=== PATIENT | male | born 1935 | race Caucasian/White ===

== ENCOUNTER 2017-02-25 19:41 | Inpatient (IN) ==
[2017-02-25] MEDS ORDERED: 0.9 % Sodium Chloride 1,000 ML ONE (20:09)
[2017-02-25] MEDS ORDERED: 0.9 % Sodium Chloride 1,000 ML IVC ONE (20:10)
[2017-02-25 20:57] LABS: Hematocrit 20.4 % (37.5-50.1); Immature Granulocytes % 1.5 % (0-4); Lymphocytes # 0.9 K/mcL (0.6-4.6); Lymphocytes % 4.3 %; Mean Corpuscular HGB Conc 27.5 g/dL (31.6-35.5); Mean Corpuscular Hemoglobin 19.6 pg (28.0-33.3); Mean Corpuscular Volume 71.6 fL (83.0-100.0); Mean Platelet Volume 9.2 fL (9.4-12.4); Monocytes # 0.5 K/mcL (0.0-1.3); Monocytes % 2.5 %; Neutrophils # 18.4 K/mcL (1.6-8.9); Platelet Count 164 K/mcL (140-400); Red Blood Count 2.85 M/mcL (4.19-5.50); Red Cell Distribution Width 18.5 % (11.5-14.5); Segmented Neutrophils % 91.7 %
[2017-02-25 21:02] LABS: INR 1.2; Prothrombin Time 13.2 Seconds (9.4-12.1)
[2017-02-25 21:04] LABS: Activated Partial Thrombo Time 27.4 Seconds (26.0-36.0)
[2017-02-25 21:11] LABS: Alanine Aminotransferase 6 Units/L (0-55); Albumin/Globulin Ratio 0.6 (1.1-2.2); Alkaline Phosphatase 90 Units/L (38-126); Amylase 63 Units/L (25-125); Aspartate Amino Transferase 15 Units/L (5-34); BUN/Creatinine Ratio 22 (6-26); Bilirubin,Direct 0.3 mg/dL (0.0-0.5); Bilirubin,Indirect 0.2 mg/dL (0.0-1.2); Bilirubin,Total 0.5 mg/dL (0.2-1.2); Blood Urea Nitrogen 17 mg/dL (8-26); Calcium 7.7 mg/dL (8.6-10.8); Carbon Dioxide 26 mEq/L (19-29); Chloride 106 mEq/L (98-109); Globulin 3.1 g/dL (2.4-3.5); Glucose 118 mg/dL (70-99); Osmolality,Calculated 281 (280-300); Potassium 3.8 mEq/L (3.5-4.5); Sodium 134 mEq/L (136-145); Total Protein 5.1 g/dL (6.0-8.3); eGFR For African Americans > 60 (> 60); eGFR For Non-African Americans > 60 (> 60)
[2017-02-25 21:12] LABS: Lipase < 10 Units/L (8-78)
[2017-02-25 21:16] LABS: Hemoglobin 5.6 g/dL (12.9-16.9)
[2017-02-25 21:31] LABS: Anisocytosis 1+ (Not Present); Hypochromasia Present (Not Present); Platelet Estimate Normal (Normal)
[2017-02-25 21:32] LABS: Ovalocytes 1+ (Not Present); Tear Drop Cells 1+ (Not Present)
--- NOTE | 2017-02-25 22:54 | Emergency Department Note ---
Disposition Clinical Impression: GI bleeding Qualifiers: GI bleed type/associated pathology: unspecified gastrointestinal hemorrhage type Qualified Code(s): K92.2 - Gastrointestinal hemorrhage, unspecified Anemia Qualifiers: Anemia type: unspecified type Qualified Code(s): D64.9 - Anemia, unspecified Disposition: Admitted As Inpatient Condition: Good General Adult HPI - General Chief complaint: ED Extremity Injury, Upper Stated complaint: L arm/abd pain Time Seen by Provider: 02/25/17 19:51 Source: patient, EMS Limitations: no limitations Nursing Notes Reviewed: Yes Vital Signs Reviewed: Yes - History of Present Illness HPI Narrative: 81-year-old male presents with concerns of left arm pain and abdominal pain. Patient has a history of colon cancer and has been anemic multiple times in the past. Patient does report feeling weak and fatigued. On my initial evaluation he denies arm or abdominal pain but he is very pale to the exam. Patient had initial blood pressure in the systolic 80s which did improve after initial treatment with IV fluids. Pain Scale: 0 - Related Data Home Medications Medication Instructions Recorded Confirmed Acetaminophen [Tylenol 650mg SUPP] 650 mg RC Q6H PRN 02/25/17 02/25/17 Bisacodyl [Dulcolax] 10 mg RC DAILY PRN 02/25/17 02/25/17 Calcium Carbonate [Calcium] 500 mg PO QAM 02/25/17 02/25/17 Cholecalciferol (D-3) [Vitamin D] 2,000 unit PO DAILY 02/25/17 02/25/17 Guaifenesin [Mucinex] 1,200 mg PO BID PRN 02/25/17 02/25/17 HYDROcodone/Acet 5/325 mg [[place] 1 tab PO Q6H PRN 02/25/17 02/25/17 5-325 mg] Hyoscyamine SL [Levsin SL] 0.125 mg SL Q4H PRN 02/25/17 02/25/17 LORazepam [Ativan] 0.5 mg PO Q6H PRN 02/25/17 02/25/17 Levothyroxine [Synthroid] 50 mcg PO QAM 02/25/17 02/25/17 Morphine Oral CONC [Roxanol] 5 mg PO Q3H PRN 02/25/17 02/25/17 Potassium Chloride [K-Tab ER] 10 meq PO DAILY 02/25/17 02/25/17 Prochlorperazine Maleate 10 mg PO Q6H PRN 02/25/17 02/25/17 [Compazine] Ranitidine HCl [Zantac] 150 mg PO BID 02/25/17 02/25/17 Sennosides/Docusate Sodium [Sm 1 each PO BID 02/25/17 02/25/17 Senna-S Tablet] Tamsulosin [Flomax] 0.4 mg PO HS 02/25/17 02/25/17 Previous Rx's Medication Instructions Recorded Megestrol Acetate [Megace] 400 mg PO DAILY #300 mls 05/06/16 Cyanocobalamin (B-12) [Vitamin B12] 1,000 mcg PO DAILY #30 tablet 05/13/16 Folic Acid 1 mg PO DAILY #30 tablet 05/13/16 Docusate Sodium [Colace] 1 tab PO BID #60 capsule 06/02/16 Polyethylene Glycol 3350 [MiraLAX] 17 gm PO DAILY #1 tub 06/02/16 Citalopram Hydrobromide [Celexa] 20 mg PO DAILY #30 tab 06/09/16 HYDROcodone/Acet 7.5/325 mg [[place] 1 tab PO Q6H PRN #90 tablet 09/10/16 7.5-325 mg] Morphine Sulfate 20 mg PO Q2H PRN #30 mls 09/10/16 Terazosin HCl 2 mg PO HS #30 capsule 10/21/16 Allergies Allergy/AdvReac Type Severity Reaction Status Date / Time No Known Allergies Allergy Verified 06/06/15 10:20 All systems ED: reviewed and negative except as stated. Constitutional: Reports: weakness. Denies: fever, chills Cardiovascular: Reports: chest pain Gastrointestinal: Reports: abdominal pain, nausea. Denies: vomiting, diarrhea, hematemesis, melena, hematochezia Past Medical History - Past Medical History Attestation: Yes The following information was validated with the patient. Source: patient Medical history: Reports: cancer, GERD, hypertension Psychiatric history: Reports: depression - Social History Smoking Status: Never smoker Alcohol use: Reports: none Drug use: Reports: none Physical Exam General: Alert and in no acute distress Skin: Warm, dry, intact Head: Normocephalic and atraumatic Neck: Supple, trachea midline and no tenderness Cardiovascular: Tachycardia, normal perfusion Respiratory: CTAB, no wheezing, cough, or respiratory distress Musculoskeletal: Normal strength, no tenderness, swelling or deformity GI: Soft, nontender, nondistended. Bowel sounds present. rectal exam shows liquid brown stool that is guaiac positive Neuro: A&O to person, place, time and situation. No focal deficits noted on exam Psychiatric: cooperative and appropriate mood and affect. - General Limitations: no limitations General appearance: alert, in no apparent distress Course Vital Signs Temperature 97.7 F 02/25/17 19:51 Pulse Rate 97 02/25/17 19:51 Respiratory Rate 18 02/25/17 19:51 Blood Pressure 87/53 02/25/17 19:51 O2 Sat by Pulse Oximetry 98 02/25/17 19:51 Temperature 97.7 F 02/25/17 19:51 Pulse Rate 97 02/25/17 20:41 Respiratory Rate 18 02/25/17 22:30 Blood Pressure 99/64 02/25/17 22:30 O2 Sat by Pulse Oximetry 100 02/25/17 20:41 Oxygen Delivery Oxygen Delivery Nasal Cannula Medical Decision Making - [facility] Narrative Medical decision making narrative: Rectal exam showed brown stool which was definitively guaiac positive. This is likely the source of the patient's anemia. He does not have any pain in his chest or anywhere else in the emergency department. Patient will be admitted to the hospital for blood transfusion and further evaluation of his GI bleeding. - Medical Records Medical records reviewed: Yes I reviewed the patient's medical records. - Lab Data Lab results reviewed: Yes I reviewed the patient's lab results. Result diagrams: 02/25/17 20:34 02/25/17 20:34 Lab Results 02/25/17 02/25/17 02/25/17 Range/Units 20:34 20:34 20:34 WBC 20.1 H (4.3-11.1) K/mcL RBC 2.85 L (4.19-5.50) M/mcL Hgb 5.6 L* (12.9-16.9) g/dL Hct 20.4 L (37.5-50.1) % MCV 71.6 L (83.0-100.0) fL MCH 19.6 L (28.0-33.3) pg MCHC 27.5 L (31.6-35.5) g/dL RDW 18.5 H (11.5-14.5) % Plt Count 164 (140-400) K/mcL MPV 9.2 L (9.4-12.4) fL Immature Gran % 1.5 (0-4) % Seg Neutrophils % 91.7 % Lymphocytes % 4.3 % Monocytes % 2.5 % Eosinophils % 0.0 % Basophils % 0.0 % Neutrophils # 18.4 H (1.6-8.9) K/mcL Lymphocytes # 0.9 (0.6-4.6) K/mcL Monocytes # 0.5 (0.0-1.3) K/mcL Eosinophils # 0.0 (0.0-0.6) K/mcL Basophils # 0.0 (0.0-0.2) K/mcL Platelet Estimate Normal (Normal) Hypochromasia Present A (Not Present) Anisocytosis 1+ A (Not Present) Tear Drop Cells 1+ A (Not Present) Ovalocytes 1+ A (Not Present) PT 13.2 H (9.4-12.1) Seconds INR 1.2 APTT 27.4 (26.0-36.0) Seconds Sodium 134 L (136-145) mEq/L Potassium 3.8 (3.5-4.5) mEq/L Chloride 106 (98-109) mEq/L Carbon Dioxide 26 (19-29) mEq/L BUN 17 (8-26) mg/dL Creatinine 0.76 (0.72-1.25) mg/dL Est GFR ( Amer) > 60 (> 60) Est GFR (Non-Af Amer) > 60 (> 60) BUN/Creatinine Ratio 22 (6-26) Glucose 118 H (70-99) mg/dL Calculated Osmolality 281 (280-300) Calcium 7.7 L (8.6-10.8) mg/dL Total Bilirubin 0.5 (0.2-1.2) mg/dL Direct Bilirubin 0.3 (0.0-0.5) mg/dL Indirect Bilirubin 0.2 (0.0-1.2) mg/dL AST 15 (5-34) Units/L ALT 6 (0-55) Units/L Alkaline Phosphatase 90 (38-126) Units/L Troponin I (0-0.03) ng/mL Serum Total Protein 5.1 L (6.0-8.3) g/dL Albumin 2.0 L (3.5-5.0) g/dL Globulin 3.1 (2.4-3.5) g/dL Albumin/Globulin Ratio 0.6 L (1.1-2.2) Amylase 63 (25-125) Units/L Lipase < 10 (8-78) Units/L Stool Occult Blood (Negative) Blood Type Antibody Screen Crossmatch 02/25/17 02/25/17 02/25/17 Range/Units 21:44 21:48 21:48 WBC (4.3-11.1) K/mcL RBC (4.19-5.50) M/mcL Hgb (12.9-16.9) g/dL Hct (37.5-50.1) % MCV (83.0-100.0) fL MCH (28.0-33.3) pg MCHC (31.6-35.5) g/dL RDW (11.5-14.5) % Plt Count (140-400) K/mcL MPV (9.4-12.4) fL Immature Gran % (0-4) % Seg Neutrophils % % Lymphocytes % % Monocytes % % Eosinophils % % Basophils % % Neutrophils # (1.6-8.9) K/mcL Lymphocytes # (0.6-4.6) K/mcL Monocytes # (0.0-1.3) K/mcL Eosinophils # (0.0-0.6) K/mcL Basophils # (0.0-0.2) K/mcL Platelet Estimate (Normal) Hypochromasia (Not Present) Anisocytosis (Not Present) Tear Drop Cells (Not Present) Ovalocytes (Not Present) PT (9.4-12.1) Seconds INR APTT (26.0-36.0) Seconds Sodium (136-145) mEq/L Potassium (3.5-4.5) mEq/L Chloride (98-109) mEq/L Carbon Dioxide (19-29) mEq/L BUN (8-26) mg/dL Creatinine (0.72-1.25) mg/dL Est GFR ( Amer) (> 60) Est GFR (Non-Af Amer) (> 60) BUN/Creatinine Ratio (6-26) Glucose (70-99) mg/dL Calculated Osmolality (280-300) Calcium (8.6-10.8) mg/dL Total Bilirubin (0.2-1.2) mg/dL Direct Bilirubin (0.0-0.5) mg/dL Indirect Bilirubin (0.0-1.2) mg/dL AST (5-34) Units/L ALT (0-55) Units/L Alkaline Phosphatase (38-126) Units/L Troponin I 0.03 (0-0.03) ng/mL Serum Total Protein (6.0-8.3) g/dL Albumin (3.5-5.0) g/dL Globulin (2.4-3.5) g/dL Albumin/Globulin Ratio (1.1-2.2) Amylase (25-125) Units/L Lipase (8-78) Units/L Stool Occult Blood Positive A (Negative) Blood Type O NEGATIVE Antibody Screen NEGATIVE Crossmatch See Detail - Radiology Data Radiology results reviewed: Yes I reviewed the patient's radiology results. - EKG Data EKG #1 EKG attestation: Yes I reviewed and interpreted this EKG. EKG results narrative: ECG - interpreted by ED physician. Rate 95, normal sinus rhythm, no STEMI, CA, QT intervals, and QRS within normal limits Critical Care Time Critical Care Time: Yes Total Critical Care Time: 40 Attestation: The high probability of a clinically significant, sudden or life threatening deterioration of the cardiovascular system(s) required my full and direct attention, intervention and personal management. The aggregate critical care time was 40 minutes. This time is in addition to time spent performing reported procedures but includes the following: x Data Review and interpretation x Patient assessment and monitoring of vital signs x Documentation x Medication orders and management
[2017-02-25] MEDS ORDERED: Naloxone 0.4 MG/ML INJ IVP PRN (23:23)
[2017-02-25] MEDS ORDERED: Ondansetron ODT 4 MG TAB.RAPDIS SL PRN (23:23)
[2017-02-25] MEDS ORDERED: Acetaminophen 325 MG TABLET PO PRN (23:23)
--- NOTE | 2017-02-25 23:31 | Internal Med History&Physical ---
<CordellkalaniJuan F souza - Last Filed: 02/25/17 23:54> Date of Encounter: 02/25/17 Time of Encounter: 23:00 Assessment and Plan (1) Microcytic anemia Current visit: Yes Status: Acute Patient admitted with a hemoglobin of 5.6 down from 93 months ago. MCV of 71.6. Likely secondary to acute blood loss anemia with known adenocarcinoma colon cancer. 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 - Stool occult positive - Patient states that the bleeding is from colon cancer he does not want any surgical interventions, chemoradiation or colonoscopy at this time. - Mr. Villanueva does have a advance care directive on file that expires 2017. - The patient is responding hemodynamically to IV fluids and will receive blood transfusion this evening. No signs of active bleeding besides a positive stool all call which may be from a slow blood loss given the clinical picture. At this time no need for colonoscopy as the patient has active adenocarcinoma. Plan: - 3 units PRBC transfusion - Repeat hemoglobin at 4 AM - Palliative care consultation. (2) Colon cancer Current visit: Yes Status: Acute Patient has known adenocarcinoma of the colon. He is followed by [facility] and reviewed their documentation demonstrates that he has refused surgical intervention. After discussion with the patient regarding his colon cancer history he still does not want any further interventions. If the bleeding is from his colon cancer he said he did not want any intervention. - No need for oncology consult as the patient has been seen and evaluated with the last visit in August 2016 for which she did not want any further interventions on his colon cancer. I discussed palliative care consult with Mr. Villanueva and he is willing to talk to them in the morning. Plan: - Continue home medications Qualifiers: Colon location: unspecified part of colon Qualified Code(s): C18.9 - Malignant neoplasm of colon, unspecified (3) DVT prophylaxis Current visit: Yes Status: Acute SCDs. Internal Medicine - H&P: HPI Chief complaint: tired and weak Admitted From: Emergency Dept Plans for Post Hospital Care: Home History of present illness: Mr. Villanueva is a 81 year old male pmh colon cancer, refusing intervention, former smoker presented to the emergency department with abdominal discomfort and fatigue. The patient states that he has been feeling very tired and fatigued for a long period of time but over the last couple of days has had abdominal pain without much improvement. He describes the abdominal pain is sharp and localized to his mid epigastric region. He also has associated nausea but no vomiting, fevers chills sweating diaphoresis chest pain, palpitations or chest pressure or shortness of breath. He denies any blood in his urine, sputum or stool. He says he has occasional episodes of diarrhea but has not noticed any dark tarry stool or bright maria fernanda red blood. When asked about his other medical conditions he is not the greatest historian and says he takes a bunch of pills. When discussing his CODE STATUS he says he does not want chest compressions, intubation or any invasive procedures or life- sustaining measures. He he would like to have a blood transfusion. He denies any other concerns or complaints at this time. Past Med Surg Social Fam HX - Past Medical History Medical history: cancer, GERD, hypertension, other Psychiatric history: depression - Past Surgical History Surgical History: no surgical history - Social History Smoking Status: Former smoker Alcohol use: none Drug use: none - Family History Father Living Status: Age at : 98 Cause of : "Old age" Hx Family Cardiac Disorders: No Hx Family Respiratory Disorders: No Hx Family Cancer: No Hx Family GI Disorders: No Hx Family Genitourinary Disorders: No Hx Family Endocrine Disorder: Yes (DM) Hx Family Musculoskeletal Disorders: No Hx Family Neuromuscular Disorders: No Hx Family Neurologic Disorders: No Hx Family HEENT Disorders: No Hx Family Autoimmune Disorders: No Hx Family Reproductive Disorders: No Hx Family Psychosocial Disorders: No Hx Family Medical Disorders: No Internal Medicine - H&P: Meds Megestrol Acetate [Megace] 400 mg PO DAILY #300 mls 05/06/16 [Rx] Cyanocobalamin (B-12) [Vitamin B12] 1,000 mcg PO DAILY #30 tablet 05/13/16 [Rx] Folic Acid 1 mg PO DAILY #30 tablet 05/13/16 [Rx] Docusate Sodium [Colace] 1 tab PO BID #60 capsule 06/02/16 [Rx] Polyethylene Glycol 3350 [MiraLAX] 17 gm PO DAILY #1 tub 06/02/16 [Rx] Citalopram Hydrobromide [Celexa] 20 mg PO DAILY #30 tab 06/09/16 [Rx] HYDROcodone/Acet 7.5/325 mg [[place] 7.5-325 mg] 1 tab PO Q6H PRN #90 tablet 09/10 [Rx] Morphine Sulfate 20 mg PO Q2H PRN #30 mls 09/10/16 [Rx] Terazosin HCl 2 mg PO HS #30 capsule 10/21/16 [Rx] Acetaminophen [Tylenol 650mg SUPP] 650 mg RC Q6H PRN 02/25/17 [History] Bisacodyl [Dulcolax] 10 mg RC DAILY PRN 02/25/17 [History] Calcium Carbonate [Calcium] 500 mg PO QAM 02/25/17 [History] Cholecalciferol (D-3) [Vitamin D] 2,000 unit PO DAILY 02/25/17 [History] Guaifenesin [Mucinex] 1,200 mg PO BID PRN 02/25/17 [History] HYDROcodone/Acet 5/325 mg [[place] 5-325 mg] 1 tab PO Q6H PRN 02/25/17 [History] Hyoscyamine SL [Levsin SL] 0.125 mg SL Q4H PRN 02/25/17 [History] LORazepam [Ativan] 0.5 mg PO Q6H PRN 02/25/17 [History] Levothyroxine [Synthroid] 50 mcg PO QAM 02/25/17 [History] Morphine Oral CONC [Roxanol] 5 mg PO Q3H PRN 02/25/17 [History] Potassium Chloride [K-Tab ER] 10 meq PO DAILY 02/25/17 [History] Prochlorperazine Maleate [Compazine] 10 mg PO Q6H PRN 02/25/17 [History] Ranitidine HCl [Zantac] 150 mg PO BID 02/25/17 [History] Sennosides/Docusate Sodium [Sm Senna-S Tablet] 1 each PO BID 02/25/17 [History] Tamsulosin [Flomax] 0.4 mg PO HS 02/25/17 [History] Allergies No Known Allergies Allergy (Verified 06/06/15 10:20) All Systems PM: A 10-system review of systems was performed and is negative for pertinent findings except as documented above in the HPI. - Constitutional Constitutional: lethargy, weakness, no chills, no fever(s), no night sweats, no weight gain, no weight loss - EENT Eyes: no change in vision, no discharge, no pain, no photophobia Ears: no ear discharge, no ear pain, no tinnitus Nose, mouth and throat: no dysphagia, no nasal discharge, no neck pain, no sore throat - Cardiovascular Cardiovascular ROS IM: no chest pain, no diaphoresis, no dyspnea, no lightheadedness, no palpitations, no syncope - Respiratory Respiratory: no cough, no dyspnea, no wheezing, no excessive phlegm production - Gastrointestinal Gastrointestinal: abdominal pain, nausea, no diarrhea, no hematemesis, no hematochezia, no melena, no vomiting - Genitourinary Genitourinary ROS male: no dysuria, no hematuria, no urinary hesitancy - Musculoskeletal Musculoskeletal ROS IM: no numbness, no tingling - Integumentary Integumentary IM: no rash, no unusual bruising - Neurological Neurological ROS: no confusion, no convulsions, no focal weakness, no numbness, no tingling, no tremor(s) - Hematologic/Lymphatic Hematologic/Lymphatic: no easy bruising - Constitutional Vitals: Temp Pulse Resp BP Pulse Ox 97.7 F 97 18 99/64 100 02/25/17 19:51 02/25/17 20:41 02/25/17 22:30 02/25/17 22:30 02/25/17 20:41 Exam: General: Patient alert, awake, oriented, very pale, cachectic, in no acute distress HEENT: Sunken orbits and temporal regions, atraumatic, pupils equal reactive to light, nasal cavity patent and open septum median position, oral mucosa pale and moist, neck supple trachea midline no palpable lymphadenopathy, there is fullness to the right side of the thyroid gland. Chest: Symmetric bilateral correlating with respiratory effort, effort nonlabored. Cardiac: Regular rate and rhythm, positive S1 and S2. no bruits appreciated bilateral carotids, Radial pulses 2+ bilateral, posterior tibial and dorsal pedal pulses 2+ bilateral. Respiratory: Clear to auscultation all lung gonzalez Abdomen: Soft, concave, tender to palpation of the epigastric region. positive bowel sounds, palpable mass in the epigastric and left middle abdominal quadrant. Extremities: Symmetric bilateral, bilateral lower extremities without erythema or edema patient moving all 4 extremities spontaneously. Neurologic: No focal deficits appreciated on examination. Face symmetric, muscle strength symmetric bilateral upper and lower extremities. Internal Med - H&P Results - Labs CBC & Chem 7: 02/25/17 20:34 02/25/17 20:34 <Luis A Campa - Last Filed: 02/26/17 02:40> Date of Encounter: 02/25/17 Assessment and Plan (1) Acute blood loss anemia Current visit: Yes Status: Acute most likely from GI loss considering his existing hx of colon cancer, will transfuse, there is no need for oncology or GI consult since pt has already had the diagnosis confirmed and declined further treatment in the past, we will get palliative are involved (2) GERD (gastroesophageal reflux disease) Current visit: Yes Status: Chronic will continue PPI Qualifiers: Esophagitis presence: without esophagitis Qualified Code(s): K21.9 - Gastro -esophageal reflux disease without esophagitis (3) HTN (hypertension) Current visit: Yes Status: Chronic currently normotensive, we will monitor for now Qualifiers: Hypertension type: essential hypertension Qualified Code(s): I10 - Essential (primary) hypertension (4) Malnutrition Current visit: Yes Status: 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 Villanueva is a 81 year old male All Systems PM: A 10-system review of systems was performed and is negative for pertinent findings except as documented above in the HPI. - Constitutional Vitals: Temp Pulse Resp BP Pulse Ox 97.8 F 95 16 99/36 100 02/26/17 01:59 02/26/17 01:59 02/26/17 01:59 02/26/17 01:59 02/26/17 01:59 cachectic looking, with temporal wasting and prominent ribs, Internal Med - H&P Results - Labs CBC & Chem 7: 02/25/17 20:34 02/25/17 20:34 Labs: Urine 02/26/17 Range/Units 00:30 Urine Color Yellow (Yellow) Urine Clarity Cloudy A (Clear) Urine pH 5.5 (5.0-8.0) pH Units Ur Specific [place] 1.024 (1.010-1.025) Urine Protein Negative (Neg-Trace) mg/dL Urine Glucose (UA) Normal (Normal) mg/dL - Attending Attestation I personally interviewed and examined this patient and my medical decision- making was reviewed with the Resident Physician. I agree with the documented findings, disposition and treatment plan as described except to the extent edited above.
[2017-02-25] MEDS ORDERED: 0.9 % Sodium Chloride 500 ML IVC ONE (23:58)
[2017-02-26] MEDS ORDERED: Hyoscyamine SL 0.125 MG TAB.SUBL SL PRN (00:11)
[2017-02-26] MEDS ORDERED: Bisacodyl 10 MG RECTAL SUPPOSITORY RC PRN (00:11)
[2017-02-26] MEDS ORDERED: Morphine Oral CONC 5 MG/0.25 ML ORAL.SYG PO PRN (00:11)
[2017-02-26] MEDS ORDERED: *HR* LORazepam 0.5 MG TABLET PO PRN (00:11)
[2017-02-26] MEDS ORDERED: *HR* HYDROcodone/Acet 5/325 mg TABLET PO PRN ×2 (00:11→11:38)
[2017-02-26] MEDS ORDERED: Acetaminophen 650 MG RECTAL SUPP RC PRN ×2 (00:11→11:36)
[2017-02-26 00:41] LABS: Bilirubin,Urine Negative (Negative); Blood,Urine Negative (Negative); Clarity,Urine Cloudy (Clear); Color,Urine Yellow (Yellow); Glucose,Urine (UA) Normal (Normal); Ketones,Urine Negative (Negative); Leukocyte Esterase,Urine Small (Negative); Nitrite,Urine Negative (Negative); PH,Urine 5.5 pH Units (5.0-8.0); Protein,Urine Negative (Neg-Trace); Specific Gravity,Urine 1.024 (1.010-1.025); Urobilinogen,Urine Normal (Normal)
[2017-02-26 00:43] LABS: Bacteria,Urine None Seen per hpf (None-Few); Hyaline Casts,Urine Moderate per lpf (None-Few); Squamous Epithelial Cell,Urine Many per lpf (None-Few)
[2017-02-26] MEDS ORDERED: 0.9 % Sodium Chloride 250 ML ONE ×2 (01:07→05:11)
[2017-02-26] MEDS: Pantoprazole 40 MG VIAL IVP SCH (08:53)
[2017-02-26] MEDS ORDERED: Famotidine 20 MG TABLET PO SCH (09:00)
--- NOTE | 2017-02-26 09:28 | Palliative - Consult Note ---
Date of Encounter: 02/26/17 Time of Encounter: 08:50 - Assessment and Plan (1) Acute blood loss anemia Current Visit: Yes Status: Acute Assessment and plan: The patient definitely has anemia, he also has heme positive stools for which she does not wish to have any workup done. In all likelihood with a past history of colon cancer this bleeding is coming from his colon cancer. The patient states that he feels better having gotten the blood and at this point in time wishes to continue getting blood. Does not however want to have any workup done this time. (2) Colon cancer Current Visit: Yes Status: Acute Assessment and plan: The patient has a well-established history of colon cancer dating back to 2013 however as of August of this year there was no metastases noted. Overall patient has done quite well given the fact he has pursued no further workup, further diagnostics. Visit with oncology was in August of this year. Patient is not hospice eligible based on his colon cancer, in that he has had it now for 3 years and there is no sign of any metastases with it. However, the patient does now have GI bleeding going on and if the patient were to not wish to have any further transfusions os this could be considered. I have gone over this with him and he is considering his options. Qualifiers: Colon location: unspecified part of colon Qualified Code(s): C18.9 - Malignant neoplasm of colon, unspecified (3) Malnutrition Current Visit: Yes Status: Chronic Assessment and plan: Consultations nutrition is already been accomplished, and they should be following. (4) Advanced directives, counseling/discussion Current Visit: No Status: Acute Assessment and plan: The patient is DO NOT RESUSCITATE comfort care by his direction. Patient is not hospice eligible based on his colon cancer, in that he has had it now for 3 years and there is no sign of any metastases with it. However, the patient does now have GI bleeding going on and if the patient were to not wish to have any further transfusions os this could be considered. I have gone over this with him and he is considering his options. The patient has been staying at [facility]. And if he wishes to have hospice when can provide these services. [facility] does not provide services at [facility]. However the patient has discussed discussed with me the possibility of not going back to [facility]. He is also discussing whether or not he wants to have hospice or not. The basis for hospice for him at this point in time would be an acute GI bleed which she was going to have no intervention. He is not having any intervention other than getting blood. However not entertain any further blood being given after this hospitalization if he is pursuing hospice care in that that would be aggressive care for GI bleed out any any other intervening goals of care. Patient does not have a home currently he is living at [facility] and we may need to find a different place for him as he does not seem to want to go back. I have discussed this with social work. Palliative-CN HPI - Data of Consult Patient: new to practice Requesting Physician: Wai Crowder MD Primary Care Provider: PCP NO - Consult Narrative Palliative Care/Comfort Measures: Palliative care History of present illness: Mr. Villanueva is a 81 year old male With a history of colon cancer, the patient has in the past refused intervention has been offered multiple times. Amen to the emergency department from the alf where he resides at [facility], pain and fatigue. He said he been feeling very tired and fatigued for at least the last couple of months couple of days prior to admission he had been noticing a deep gnawing abdominal pain that seemed to be throughout his entire abdomen but did not seem to be made worse or better by anything until he got blood, after his first event of blood he states the pain went away completely. Although in the initial H&P he denied any dark tarry stools, he did tell me that he has had black tarry stools in the past in the recent past. He is a poor historian, he is clear that he would want blood transfusions but does not wish to have any other life- sustaining measures nor does he wish any intervention or further workup of a GI bleed. Per office notes from oncology the patient has had hospice discussed with him, however she denies this. Ring of visit on in August 2016 oncology states that heart for him having independent living for his sister to provide care, and he does not recall having any discussions with regard to hospice. He is currently residing at [facility]. Along he is been there though seems to be a matter of dispute. Palliative care was asked to see the patient with regards to probable hospice mission given the fact the patient has long-standing cancer. Please see the aspirin and plan. CC: Wai Crowder MD Weakness Past Med Surg Social Fam HX - Past Medical History Medical history: cancer, GERD, hypertension Psychiatric history: depression - Past Surgical History Surgical History: no surgical history - Social History Smoking Status: Never smoker Alcohol use: none Drug use: none - Family History Father Living Status: Age at : 98 Cause of : "Old age" Hx Family Cardiac Disorders: No Hx Family Respiratory Disorders: No Hx Family Cancer: No Hx Family GI Disorders: No Hx Family Genitourinary Disorders: No Hx Family Endocrine Disorder: Yes (DM) Hx Family Musculoskeletal Disorders: No Hx Family Neuromuscular Disorders: No Hx Family Neurologic Disorders: No Hx Family HEENT Disorders: No Hx Family Autoimmune Disorders: No Hx Family Reproductive Disorders: No Hx Family Psychosocial Disorders: No Hx Family Medical Disorders: No Medications and Allergies Megestrol Acetate [Megace] 400 mg PO DAILY #300 mls 05/06/16 [Rx] Cyanocobalamin (B-12) [Vitamin B12] 1,000 mcg PO DAILY #30 tablet 05/13/16 [Rx] Folic Acid 1 mg PO DAILY #30 tablet 05/13/16 [Rx] Docusate Sodium [Colace] 1 tab PO BID #60 capsule 06/02/16 [Rx] Polyethylene Glycol 3350 [MiraLAX] 17 gm PO DAILY #1 tub 06/02/16 [Rx] Citalopram Hydrobromide [Celexa] 20 mg PO DAILY #30 tab 06/09/16 [Rx] HYDROcodone/Acet 7.5/325 mg [[place] 7.5-325 mg] 1 tab PO Q6H PRN #90 tablet 09/10 [Rx] Morphine Sulfate 20 mg PO Q2H PRN #30 mls 09/10/16 [Rx] Terazosin HCl 2 mg PO HS #30 capsule 10/21/16 [Rx] Acetaminophen [Tylenol 650mg SUPP] 650 mg RC Q6H PRN 02/25/17 [History] Bisacodyl [Dulcolax] 10 mg RC DAILY PRN 02/25/17 [History] Calcium Carbonate [Calcium] 500 mg PO QAM 02/25/17 [History] Cholecalciferol (D-3) [Vitamin D] 2,000 unit PO DAILY 02/25/17 [History] Guaifenesin [Mucinex] 1,200 mg PO BID PRN 02/25/17 [History] HYDROcodone/Acet 5/325 mg [[place] 5-325 mg] 1 tab PO Q6H PRN 02/25/17 [History] Hyoscyamine SL [Levsin SL] 0.125 mg SL Q4H PRN 02/25/17 [History] LORazepam [Ativan] 0.5 mg PO Q6H PRN 02/25/17 [History] Levothyroxine [Synthroid] 50 mcg PO QAM 02/25/17 [History] Morphine Oral CONC [Roxanol] 5 mg PO Q3H PRN 02/25/17 [History] Potassium Chloride [K-Tab ER] 10 meq PO DAILY 02/25/17 [History] Prochlorperazine Maleate [Compazine] 10 mg PO Q6H PRN 02/25/17 [History] Ranitidine HCl [Zantac] 150 mg PO BID 02/25/17 [History] Sennosides/Docusate Sodium [Sm Senna-S Tablet] 1 each PO BID 02/25/17 [History] Tamsulosin [Flomax] 0.4 mg PO HS 02/25/17 [History] Allergies No Known Allergies Allergy (Verified 06/06/15 10:20) - Constitutional Constitutional ROS PAL: fatigue, malaise, weight loss - EENT Eyes: no discharge, no pain Ears: no ear discharge, no ear pain Ears, nose, mouth, throat: no facial pain, no hoarseness, no lip swelling - Cardiovascular Cardiovascular ROS: no chest pain, no chest pain at rest, no chest pain with activity - Respiratory Respiratory: dyspnea, dyspnea on exertion, no cough - Gastrointestinal Gastrointestinal: abdominal pain (This has resolved), diarrhea, loose stools, melena, no constipation, no nausea, no vomiting - Genitourinary Genitourinary ROS male: no urinary frequency, no urinary hesitancy - Musculoskeletal Musculoskeletal ROS IM: no back pain, no joint swelling, no muscle weakness - Integumentary ROS Integumentary: no rash, no skin ulcer, no sores - Neurological Neurological ROS: no burning sensations, no confusion, no convulsions - Psychiatric Psychiatric general PM: no depression, no difficulty concentrating, no homicidal ideation, no suicidal ideation - Endocrine Endocrine IM: as per HPI Palliative Care-Exam - Constitutional Vitals: Temp Pulse Resp BP Pulse Ox 97.7 F 78 12 115/69 100 02/26/17 08:24 02/26/17 08:24 02/26/17 08:24 02/26/17 08:24 02/26/17 08:24 General appearance: Present: no acute distress - Head Head Exam: Present: atraumatic, normal inspection - Eye Eye exam: Present: normal appearance - ENT ENT exam: Present: mucous membranes moist - Respiratory Respiratory exam: Present: CTAB - Cardiovascular Cardiovascular exam: Present: RRR - GI/Abdominal Exam GI/Abdominal exam: Present: normal bowel sounds, soft. Absent: tenderness - Extremities Exam Extremities exam: Present: normal inspection. Absent: pedal edema, tenderness - Neurological Exam Neurological exam: Present: alert, oriented X3 - Psychiatric Psychiatric exam: Absent: agitated, anxious - Skin Skin exam: Present: dry, warm Internal Medicine - CN: Reslt - Labs CBC & Chem 7: 02/25/17 20:34 02/25/17 20:34 Labs: Urine 02/26/17 Range/Units 00:30 Urine Color Yellow (Yellow) Urine Clarity Cloudy A (Clear) Urine pH 5.5 (5.0-8.0) pH Units Ur Specific [place] 1.024 (1.010-1.025) Urine Protein Negative (Neg-Trace) mg/dL Urine Glucose (UA) Normal (Normal) mg/dL - ABG Interpretation ABG results: PT/INR, D-dimer PT 13.2 Seconds (9.4-12.1) H 02/25/17 20:34 Consult Discharge Plan - Plan Referrals: Isidoro Contreras MD [Partnered Physician] - Palliative Quality Palliative Quality: Screen for Code Status: Yes, Screen for Goals of Care: Yes, Screen for Pain: Yes, If Pain Regimen Started, Initiate Bowel Regimen: Yes, Screen for Nausea/Vomitting: Yes Code Status: 02/25/17 23:23 Resuscitation Status: Active [RES] Routine Comment: Resuscitation Status: DNR-Comfort Care
[2017-02-26 10:08] LABS: Basophils % 0.2 %; Eosinophils % 0.3 %; Hematocrit 29.3 % (37.5-50.1); Immature Granulocytes % 0.4 % (0-4); Lymphocytes # 0.8 K/mcL (0.6-4.6); Lymphocytes % 5.7 %; Mean Corpuscular HGB Conc 30.7 g/dL (31.6-35.5); Mean Corpuscular Hemoglobin 23.6 pg (28.0-33.3); Mean Corpuscular Volume 76.7 fL (83.0-100.0); Mean Platelet Volume 9.9 fL (9.4-12.4); Monocytes # 0.4 K/mcL (0.0-1.3); Neutrophils # 12.8 K/mcL (1.6-8.9); Platelet Count 163 K/mcL (140-400); Red Blood Count 3.82 M/mcL (4.19-5.50); Red Cell Distribution Width 20.2 % (11.5-14.5); Segmented Neutrophils % 90.4 %
[2017-02-26 10:21] LABS: Alanine Aminotransferase 8 Units/L (0-55); Albumin 2.1 g/dL (3.5-5.0); Albumin/Globulin Ratio 0.6 (1.1-2.2); Alkaline Phosphatase 93 Units/L (38-126); Aspartate Amino Transferase 18 Units/L (5-34); BUN/Creatinine Ratio 28 (6-26); Blood Urea Nitrogen 19 mg/dL (8-26); Calcium 7.9 mg/dL (8.6-10.8); Carbon Dioxide 26 mEq/L (19-29); Chloride 107 mEq/L (98-109); Globulin 3.3 g/dL (2.4-3.5); Glucose 92 mg/dL (70-99); Osmolality,Calculated 282 (280-300); Potassium 3.5 mEq/L (3.5-4.5); Sodium 135 mEq/L (136-145); Total Protein 5.4 g/dL (6.0-8.3); eGFR For African Americans > 60 (> 60); eGFR For Non-African Americans > 60 (> 60)
[2017-02-26 10:23] LABS: Bilirubin,Total 1.2 mg/dL (0.2-1.2)
--- NOTE | 2017-02-26 14:33 | Internal Med Progress Note ---
Date of Encounter: 02/26/17 Time of Encounter: 09:15 - Assessment and plan (1) Microcytic anemia Current Visit: Yes Status: Acute Assessment and plan: Acute on chronic microcytic anemia. Likely from chronic blood loss related to colonic adenocarcinoma. Continue to monitor blood counts. Patient received 2 units of packed red blood cells today. Hemoglobin at 9 this morning. Patient does not wish for any further workup. We will continue to monitor blood counts and transfuse as needed. Moderate risk for complications. (2) Colon cancer Current Visit: Yes Status: Acute Assessment and plan: With cecal adenocarcinoma diagnosed in 2014. Patient not seeking any treatment for this. Palliative care has been consulted but because patient at this time wishes to continue with blood transfusions as needed, he is not a candidate for hospice. However he is DNR comfort care. Qualifiers: Colon location: unspecified part of colon Qualified Code(s): C18.9 - Malignant neoplasm of colon, unspecified (3) HTN (hypertension) Current Visit: Yes Status: Chronic Assessment and plan: Blood pressure is well controlled Qualifiers: Hypertension type: essential hypertension Qualified Code(s): I10 - Essential (primary) hypertension (4) Malnutrition Current Visit: Yes Status: Chronic Assessment and plan: Patient with severe protein calorie malnutrition nutrition with albumin of 2. Likely due to poor appetite and cecal adenocarcinoma. Nutrition has been consulted. We will follow recommendations. - Subjective Interval history: Patient is awake and alert. Sitting up in bed and about to eat breakfast. Denies any abdominal pain. Patient has not had any episodes of melena or hematochezia this morning. No fever or chills. Denies any lightheadedness or dizziness. No chest pain or palpitations. - Constitutional Vitals: Temp Pulse Resp BP Pulse Ox 97.6 F 82 18 118/73 100 02/26/17 11:19 02/26/17 11:19 02/26/17 11:19 02/26/17 11:19 02/26/17 11:19 General appearance: Present: cooperative, A&O X 3, no acute distress, underweight, answers questions appropriately - Eye Eye exam: Present: EOMI, PERRL, conjuntiva pink, sclera anicteric - Neck Neck exam general surgery: Present: supple, trachea midline. Absent: lymphadenopathy - Respiratory Respiratory exam: Present: CTAB. Absent: accessory muscle use, rales, rhonchi, wheezes - Cardiovascular Cardiovascular exam: Present: RRR, +S1, +S2. Absent: diastolic murmur, gallop, rubs, systolic murmur - GI/Abdominal GI/Abdominal exam: Present: normal bowel sounds, soft, no peritoneal signs. Absent: distended, tenderness - Extremities Exam Extremities exam: Present: warm, radial pulses palpable and symetrical. Absent : calf tenderness, cyanotic, pedal edema - Skin Skin exam: Present: dry, intact, pallor Internal Medicine: Result - Labs CBC & Chem 7: 02/26/17 09:59 02/26/17 09:59 Labs: Short CBC 02/26/17 Range/Units 09:59 WBC 14.1 H (4.3-11.1) K/mcL Hgb 9.0 L D (12.9-16.9) g/dL Hct 29.3 L (37.5-50.1) % Plt Count 163 (140-400) K/mcL Neutrophils # 12.8 H (1.6-8.9) K/mcL BMP 02/26/17 09:59 Sodium 135 L Potassium 3.5 Chloride 107 Carbon Dioxide 26 BUN 19 Creatinine 0.67 L Glucose 92 Calcium 7.9 L Liver Function 02/26/17 Range/Units 09:59 Total Bilirubin 1.2 D (0.2-1.2) mg/dL AST 18 (5-34) Units/L ALT 8 (0-55) Units/L Alkaline Phosphatase 93 (38-126) Units/L Albumin 2.1 L (3.5-5.0) g/dL Urine 02/26/17 Range/Units 00:30 Urine Color Yellow (Yellow) Urine Clarity Cloudy A (Clear) Urine pH 5.5 (5.0-8.0) pH Units Ur Specific [place] 1.024 (1.010-1.025) Urine Protein Negative (Neg-Trace) mg/dL Urine Glucose (UA) Normal (Normal) mg/dL - ABG Interpretation ABG results: PT/INR, D-dimer PT 13.2 Seconds (9.4-12.1) H 02/25/17 20:34 Consult Discharge Plan - Plan Referrals: Isidoro Contreras MD [Partnered Physician] -
--- NOTE | 2017-02-26 15:14 | Electrocardiograph Report ---
[place] [id number] Test Date: 2017-02-25 Pat Name: Yaya Villanueva Department: 105 Room: 3A43 Gender: M Academic Support Coordinator: : 1935 Requested By: Wai Crowder Order Number: [id number] Reading MD: Tristan Santana MD Measurements Intervals [place] Rate: 95 P: 60 CT: 159 QRS: 64 QRSD: 124 T: 58 QT: 376 QTc: 429 Interpretive Statements SINUS RHYTHM RIGHT BUNDLE BRANCH BLOCK BASELINE ARTIFACT Electronically Signed On 02-26-2017 15:13:04 EDT by Tristan Santana MD
[2017-02-27 06:16] LABS: Basophils % 0.2 %; Eosinophils # 0.1 K/mcL (0.0-0.6); Eosinophils % 0.9 %; Hematocrit 27.7 % (37.5-50.1); Hemoglobin 8.5 g/dL (12.9-16.9); Immature Granulocytes % 0.3 % (0-4); Lymphocytes # 0.6 K/mcL (0.6-4.6); Lymphocytes % 6.1 %; Mean Corpuscular HGB Conc 30.7 g/dL (31.6-35.5); Mean Corpuscular Hemoglobin 23.4 pg (28.0-33.3); Mean Corpuscular Volume 76.1 fL (83.0-100.0); Mean Platelet Volume 10.5 fL (9.4-12.4); Monocytes # 0.4 K/mcL (0.0-1.3); Monocytes % 3.6 %; Neutrophils # 9.1 K/mcL (1.6-8.9); Platelet Count 156 K/mcL (140-400); Red Blood Count 3.64 M/mcL (4.19-5.50); Red Cell Distribution Width 20.3 % (11.5-14.5); Segmented Neutrophils % 88.9 %
[2017-02-27 06:22] LABS: BUN/Creatinine Ratio 25 (6-26); Blood Urea Nitrogen 15 mg/dL (8-26); Calcium 7.8 mg/dL (8.6-10.8); Carbon Dioxide 23 mEq/L (19-29); Chloride 107 mEq/L (98-109); Glucose 73 mg/dL (70-99); Osmolality,Calculated 279 (280-300); Potassium 3.5 mEq/L (3.5-4.5); Sodium 135 mEq/L (136-145); eGFR For African Americans > 60 (> 60); eGFR For Non-African Americans > 60 (> 60)
--- NOTE | 2017-02-27 09:29 | Palliative Progress Note ---
Date of Encounter: 02/27/17 Time of Encounter: 07:40 - Assessment and plan (1) Acute blood loss anemia Current Visit: Yes Status: Acute Assessment and plan: Hemoglobin today is 8.5. The patient continues to not want any of the blood loss, this does appear to be secondary to colon cancer. He does not want to have any workup on that either. (2) Colon cancer Current Visit: Yes Status: Acute Assessment and plan: Patient has declined workup of his colon cancer, it does appear to be the cause of the GI bleed. Qualifiers: Colon location: unspecified part of colon Qualified Code(s): C18.9 - Malignant neoplasm of colon, unspecified (3) Malnutrition Current Visit: Yes Status: Chronic Assessment and plan: Patient states he is willing to eat. nutrition is following it appears he ate failrly well this am (4) Advanced directives, counseling/discussion Current Visit: No Status: Acute Assessment and plan: pt dnr cc but at this time he wnats to be able to get transfusions when he needs them. since he does not want w/u of bleed and he is 3 years out on the cancer dx with no rx and no evidence of mets his only hospice dx would be gi bleeding since he wants to get transfusions he still wants some agressive therapy and therefore is not eligible for hospice at this time - Time Spent With Patient Total time spent is greater than 50% in coordination of care (as documented) at patient's floor/unit and/or counseling patient: - Subjective Interval history: The patient has no complaints, he is looking forward to getting out. - Constitutional Vitals: Abnormal lab results RBC 3.64 M/mcL (4.19-5.50) L 02/27/17 04:40 Hgb 8.5 g/dL (12.9-16.9) L 02/27/17 04:40 Hct 27.7 % (37.5-50.1) L 02/27/17 04:40 MCV 76.1 fL (83.0-100.0) L 02/27/17 04:40 MCH 23.4 pg (28.0-33.3) L 02/27/17 04:40 MCHC 30.7 g/dL (31.6-35.5) L 02/27/17 04:40 RDW 20.3 % (11.5-14.5) H 02/27/17 04:40 Neutrophils # 9.1 K/mcL (1.6-8.9) H 02/27/17 04:40 Hypochromasia Present (Not Present) A 02/25/17 20:34 Anisocytosis 1+ (Not Present) A 02/25/17 20:34 Tear Drop Cells 1+ (Not Present) A 02/25/17 20:34 Ovalocytes 1+ (Not Present) A 02/25/17 20:34 PT 13.2 Seconds (9.4-12.1) H 02/25/17 20:34 Sodium 135 mEq/L (136-145) L 02/27/17 04:40 Creatinine 0.61 mg/dL (0.72-1.25) L 02/27/17 04:40 Calculated Osmolality 279 (280-300) L 02/27/17 04:40 Calcium 7.8 mg/dL (8.6-10.8) L 02/27/17 04:40 Serum Total Protein 5.4 g/dL (6.0-8.3) L 02/26/17 09:59 Albumin 2.1 g/dL (3.5-5.0) L 02/26/17 09:59 Albumin/Globulin Ratio 0.6 (1.1-2.2) L 02/26/17 09:59 Urine Clarity Cloudy (Clear) A 02/26/17 00:30 Ur Leukocyte Esterase Small (Negative) H 02/26/17 00:30 Urine Microscopic RBC 5-15 per hpf (0-3) H 02/26/17 00:30 Urine Microscopic WBC 5-15 per hpf (0-3) H 02/26/17 00:30 Ur Squamous Epith Cells Many per lpf (None-Few) H 02/26/17 00:30 Hyaline Casts Moderate per lpf (None-Few) H 02/26/17 00:30 Ur Culture Indicated? YES (NO) A 02/26/17 00:30 Stool Occult Blood Positive (Negative) A 02/25/17 21:44 General appearance: Present: no acute distress - Head Head exam: Present: atraumatic - Neck Neck exam: Present: normal inspection - Respiratory Respiratory exam: Absent: accessory muscle use, tachypnea - Neurological Exam Neurological exam: Present: alert - Psychiatric Psychiatric exam: Absent: agitated, anxious - Skin Skin exam: Present: dry, warm Palliative Quality Palliative Quality: Screen for Code Status: Yes, Screen for Goals of Care: Yes, Screen for Pain: Yes, If Pain Regimen Started, Initiate Bowel Regimen: Yes, Screen for Nausea/Vomitting: Yes Code Status: 02/25/17 23:23 Resuscitation Status: Active [RES] Routine Comment: Resuscitation Status: DNR-Comfort Care - Labs CBC & Chem 7: 02/27/17 04:40 02/27/17 04:40 Labs: Laboratory Results - last 24 hr 02/26/17 02/26/17 02/27/17 09:59 09:59 04:40 WBC 14.1 H 10.3 RBC 3.82 L 3.64 L Hgb 9.0 L D 8.5 L Hct 29.3 L 27.7 L MCV 76.7 L 76.1 L MCH 23.6 L 23.4 L MCHC 30.7 L 30.7 L RDW 20.2 H 20.3 H Plt Count 163 156 MPV 9.9 10.5 Immature Gran % 0.4 0.3 Seg Neutrophils % 90.4 88.9 Lymphocytes % 5.7 6.1 Monocytes % 3.0 3.6 Eosinophils % 0.3 0.9 Basophils % 0.2 0.2 Neutrophils # 12.8 H 9.1 H Lymphocytes # 0.8 0.6 Monocytes # 0.4 0.4 Eosinophils # 0.0 0.1 Basophils # 0.0 0.0 Sodium 135 L Potassium 3.5 Chloride 107 Carbon Dioxide 26 BUN 19 Creatinine 0.67 L Est GFR ( Amer) > 60 Est GFR (Non-Af Amer) > 60 BUN/Creatinine Ratio 28 H Glucose 92 Calculated Osmolality 282 Calcium 7.9 L Total Bilirubin 1.2 D AST 18 ALT 8 Alkaline Phosphatase 93 Serum Total Protein 5.4 L Albumin 2.1 L Globulin 3.3 Albumin/Globulin Ratio 0.6 L 02/27/17 04:40 WBC RBC Hgb Hct MCV MCH MCHC RDW Plt Count MPV Immature Gran % Seg Neutrophils % Lymphocytes % Monocytes % Eosinophils % Basophils % Neutrophils # Lymphocytes # Monocytes # Eosinophils # Basophils # Sodium 135 L Potassium 3.5 Chloride 107 Carbon Dioxide 23 BUN 15 Creatinine 0.61 L Est GFR ( Amer) > 60 Est GFR (Non-Af Amer) > 60 BUN/Creatinine Ratio 25 Glucose 73 Calculated Osmolality 279 L Calcium 7.8 L Total Bilirubin AST ALT Alkaline Phosphatase Serum Total Protein Albumin Globulin Albumin/Globulin Ratio - ABG Interpretation ABG results: PT/INR, D-dimer PT 13.2 Seconds (9.4-12.1) H 02/25/17 20:34 Consult Discharge Plan - Plan Referrals: Isidoro Contreras MD [Partnered Physician] -
[2017-02-27] MEDS: Pantoprazole 40 MG VIAL IVP SCH (09:55)
[2017-02-27 11:17] VITALS: BP 106/62
--- NOTE | 2017-02-27 11:34 | Discharge Summary ---
Date of Encounter: 02/27/17 Time of Encounter: 09:40 - Discharge Diagnosis (1) Microcytic anemia Priority: Primary Status: Acute (2) Colon cancer Priority: Secondary Status: Acute Qualifiers: Colon location: unspecified part of colon Qualified Code(s): C18.9 - Malignant neoplasm of colon, unspecified (3) HTN (hypertension) Priority: Secondary Status: Chronic Qualifiers: Hypertension type: essential hypertension Qualified Code(s): I10 - Essential (primary) hypertension (4) Malnutrition Priority: Secondary Status: Chronic - Discharge Medications Prescriptions: HYDROcodone/Acet 5/325 mg [[place] 5-325 mg] 1 tab PO Q6H PRN #14 PRN Reason: Pain LORazepam [Ativan] 0.5 mg PO Q6H PRN #14 PRN Reason: Anxiety/Agitation Morphine Oral CONC [Roxanol] 5 mg PO Q3H PRN #10 ml PRN Reason: Severe Pain Home Medications: Megestrol Acetate [Megace] 400 mg PO DAILY #300 mls 05/06/16 [Rx] Cyanocobalamin (B-12) [Vitamin B12] 1,000 mcg PO DAILY #30 tablet 05/13/16 [Rx] Folic Acid 1 mg PO DAILY #30 tablet 05/13/16 [Rx] Docusate Sodium [Colace] 1 tab PO BID #60 capsule 06/02/16 [Rx] Polyethylene Glycol 3350 [MiraLAX] 17 gm PO DAILY #1 tub 06/02/16 [Rx] Citalopram Hydrobromide [Celexa] 20 mg PO DAILY #30 tab 06/09/16 [Rx] Terazosin HCl 2 mg PO HS #30 capsule 10/21/16 [Rx] Acetaminophen [Tylenol 650mg SUPP] 650 mg RC Q6H PRN 02/25/17 [History] Bisacodyl [Dulcolax] 10 mg RC DAILY PRN 02/25/17 [History] Calcium Carbonate [Calcium] 500 mg PO QAM 02/25/17 [History] Cholecalciferol (D-3) [Vitamin D] 2,000 unit PO DAILY 02/25/17 [History] Guaifenesin [Mucinex] 1,200 mg PO BID PRN 02/25/17 [History] Hyoscyamine SL [Levsin Sl] 0.125 mg SL Q4H PRN 02/25/17 [History] Levothyroxine [Synthroid] 50 mcg PO QAM 02/25/17 [History] Potassium Chloride [K-Tab ER] 10 meq PO DAILY 02/25/17 [History] Prochlorperazine Maleate [Compazine] 10 mg PO Q6H PRN 02/25/17 [History] Sennosides/Docusate Sodium [Sm Senna-S Tablet] 1 each PO BID 02/25/17 [History] Tamsulosin [Flomax] 0.4 mg PO HS 02/25/17 [History] HYDROcodone/Acet 5/325 mg [[place] 5-325 mg] 1 tab PO Q6H PRN #14 02/27/17 [Rx] LORazepam [Ativan] 0.5 mg PO Q6H PRN #14 02/27/17 [Rx] Morphine Oral CONC [Roxanol] 5 mg PO Q3H PRN #10 ml 02/27/17 [Rx] Allergies/Adverse Reactions: Allergies No Known Allergies Allergy (Verified 06/06/15 10:20) Procedures/tests Complete & Pending: Procedures Performed prior 72 hours Category Date Time Status ECG 12 lead ECG [ECG] Routine Y 02/25/17 20:22 Completed Date of admission: 02/25/17 23:19 Primary care physician: PCP NO Consults: 02/25/17 23:25 Consult to Palliative Care [CONS] Routine Comment: Consulting Provider: Palliative Care Barbara Reason for Consult: colon cancer-does not want surgery, severe anemia Call Completed: No 02/25/17 23:31 Consult to Nutrition [CONS] Routine Comment: Consulting Provider: NUTRITION Reason for Dietary Consult: MST Score 02/26/17 08:51 Consult to [employer] [CONS] Routine Reason for SW Consult: from [facility] Discharging clinician: Wai Crowder Anticipated date of discharge: 02/27/17 - Patient Status Disposition: Transfer SNF Condition: Good Functional capacity at discharge: uses cane/walker Overall status at discharge: patient is progressing back to baseline - Discharge Instructions Instructions: Anemia (GEN) Follow Up With: Isidoro Contreras MD [Partnered Physician] - (in 1-2 weeks) Forms: ED Satisfaction Letter, Work/School Release - Diet and Activity Activity: increase activity as tolerated Diet: low fat, low cholesterol, low salt diet Hospital course: Mr. Villanueva is a 81 year old male patient with a history of cecal adenocarcinoma , chronic anemia who was admitted here with acute on chronic anemia related to GI bleed. Patient is DNR comfort care at baseline and did not want any further workup for this. He only wanted to be transfused blood. On initial presentation his hemoglobin level was 5.6. He received 2 units packed red blood cells and his hemoglobin levels have improved to 9. This morning his hemoglobin levels was 8.5. Patient is feeling much better. He denies any active bleeding per rectum at this time. Palliative care also evaluated the patient for hospice but as patient is currently still wanting blood transfusions , he is not a candidate this time for hospice. He can follow up with oncology for further management of his cecal adenocarcinoma. - Time Spent with Patient Total time spent providing and/or coordinating discharge services: Greater than 30 minutes (40 min) - Constitutional Vitals: Temp Pulse Resp BP Pulse Ox 98.0 F 77 20 106/62 99 02/27/17 11:16 02/27/17 11:16 02/27/17 11:16 02/27/17 11:16 02/27/17 11:16 General appearance: Present: cooperative, A&O X 3, no acute distress, underweight, answers questions appropriately - Eye Eye exam: Present: EOMI, PERRL, conjuntiva pink, sclera anicteric - Neck Neck exam general surgery: Present: supple, trachea midline. Absent: lymphadenopathy - Respiratory Respiratory exam: Present: CTAB. Absent: accessory muscle use, rales, rhonchi, wheezes - Cardiovascular Cardiovascular exam: Present: RRR, +S1, +S2. Absent: diastolic murmur, gallop, rubs, systolic murmur - GI/Abdominal GI/Abdominal exam: Present: normal bowel sounds, soft, no peritoneal signs. Absent: distended, tenderness - Extremities Exam Extremities exam: Present: warm, radial pulses palpable and symetrical. Absent : calf tenderness, cyanotic, pedal edema - Neurological Exam Neurological exam: Present: alert, oriented X3, no focal deficits. Absent: facial droop, speech deficit - Skin Skin exam: Present: dry, intact
--- NOTE | 2017-02-27 12:14 | Physician Discharge Referral ---
ExtendedCare Referral Info Provider in Charge after Transfer: PCP Institutional Level of Care: Skilled - Diagnosis (1) Microcytic anemia Priority: Primary Status: Acute (2) Colon cancer Priority: Secondary Status: Acute (3) HTN (hypertension) Priority: Secondary Status: Chronic (4) Malnutrition Priority: Secondary Status: Chronic Prognosis: Fair Aware of Diagnosis: Patient Aware of Prognosis: Patient - Transfer Medications Prescriptions: HYDROcodone/Acet 5/325 mg [[place] 5-325 mg] 1 tab PO Q6H PRN #14 PRN Reason: Pain LORazepam [Ativan] 0.5 mg PO Q6H PRN #14 PRN Reason: Anxiety/Agitation Morphine Oral CONC [Roxanol] 5 mg PO Q3H PRN #10 ml PRN Reason: Severe Pain Home Medications: Megestrol Acetate [Megace] 400 mg PO DAILY #300 mls 05/06/16 [Rx] Cyanocobalamin (B-12) [Vitamin B12] 1,000 mcg PO DAILY #30 tablet 05/13/16 [Rx] Folic Acid 1 mg PO DAILY #30 tablet 05/13/16 [Rx] Docusate Sodium [Colace] 1 tab PO BID #60 capsule 06/02/16 [Rx] Polyethylene Glycol 3350 [MiraLAX] 17 gm PO DAILY #1 tub 06/02/16 [Rx] Citalopram Hydrobromide [Celexa] 20 mg PO DAILY #30 tab 06/09/16 [Rx] Terazosin HCl 2 mg PO HS #30 capsule 10/21/16 [Rx] Acetaminophen [Tylenol 650mg SUPP] 650 mg RC Q6H PRN 02/25/17 [History] Bisacodyl [Dulcolax] 10 mg RC DAILY PRN 02/25/17 [History] Calcium Carbonate [Calcium] 500 mg PO QAM 02/25/17 [History] Cholecalciferol (D-3) [Vitamin D] 2,000 unit PO DAILY 02/25/17 [History] Guaifenesin [Mucinex] 1,200 mg PO BID PRN 02/25/17 [History] Hyoscyamine SL [Levsin Sl] 0.125 mg SL Q4H PRN 02/25/17 [History] Levothyroxine [Synthroid] 50 mcg PO QAM 02/25/17 [History] Potassium Chloride [K-Tab ER] 10 meq PO DAILY 02/25/17 [History] Prochlorperazine Maleate [Compazine] 10 mg PO Q6H PRN 02/25/17 [History] Sennosides/Docusate Sodium [Sm Senna-S Tablet] 1 each PO BID 02/25/17 [History] Tamsulosin [Flomax] 0.4 mg PO HS 02/25/17 [History] HYDROcodone/Acet 5/325 mg [[place] 5-325 mg] 1 tab PO Q6H PRN #14 02/27/17 [Rx] LORazepam [Ativan] 0.5 mg PO Q6H PRN #14 02/27/17 [Rx] Morphine Oral CONC [Roxanol] 5 mg PO Q3H PRN #10 ml 02/27/17 [Rx] Allergies/Adverse Reactions: Allergies No Known Allergies Allergy (Verified 06/06/15 10:20) - Respiratory Orders Smoking Cessation: Smoking cessation has been advised. For more information, call the [employer] Tobacco Quit Line at 8-350-VZOR-NOW. - Ancillary Orders May consult with Dentist, Welfare Investigator, Laborer PRN - Advance Directives Code Status: DNR-Comfort Care - Mobility Orders Other (per PT) - Rehabiliation Orders Rehab Potential: Fair Rehab Orders: Evaluation for Physical Therapy, Evaluation for Occupational Therapy - Diet Orders Cardiac CERTIFICATION: I certify that the transfer of the above named patient to an Extended Care Facility is necessary for the continuing treatment of the diagnosis listed. The above information is true and accurate reflection of patient's current condition. Confidential - Redisclosure prohibited without a patient's written consent.
== END 2017-02-27 16:00 | DRG 374 ==
LOC: EMEROO 19:41 → 3ANU 19:41
PROVIDERS: ADMIT Internal Medicine; ATTEND Internal Medicine